=== PATIENT | female | born 1935 | race African-American/Black ===

== ENCOUNTER 2017-04-25 21:13 | Emergency (ER) | payer OTHER ==
[~2017-04-25] VITALS: Ht 170.2 cm; Wt 68.0 kg
[2017-04-25] MEDS ORDERED: LEXAPRO5 MG PO (21:19)
[2017-04-25] MEDS ORDERED: GLUCAGON HCL1 MG IM (21:19)
[2017-04-25] MEDS ORDERED: FLUTICASONE INH (21:20)
[2017-04-25] MEDS ORDERED: [UNRECOGNIZED DRUG - OTHER] INH (21:20)
[2017-04-25] MEDS ORDERED: NAMENDA XR28 MG PO (21:21)
[2017-04-25] MEDS ORDERED: IMDUR 60 MG TAB60 M1 PO (21:21)
[2017-04-25] MEDS ORDERED: JANUVIA100 MG PO (21:22)
[2017-04-25] MEDS ORDERED: BOOST237 M1 PO (21:22)
[2017-04-25] MEDS ORDERED: PRILOSEC 20 MG20 MG PO (21:23)
[2017-04-25] MEDS ORDERED: GLUMETZA1000 PO (21:23)
[2017-04-25] MEDS ORDERED: LOPRESSOR25 PO (21:23)
[2017-04-25] MEDS ORDERED: OMEGA-31000 M1 PO (21:24)
[2017-04-25] MEDS ORDERED: TYLENOL325 MG PO (21:24)
[2017-04-25] MEDS ORDERED: ELTA CREAM TOP (21:26)
== END 2017-04-25 23:24 ==
LOC: ER 21:13
DX: S09.90XA Unspecified injury of head, initial encounter (principal); S00.83XA Contusion of other part of head, initial encounter; M54.2 Cervicalgia; M25.512 Pain in left shoulder; M25.561 Pain in right knee; Z87.891 Personal history of nicotine dependence; W07.XXXA Fall from chair, initial encounter; Y93.89 Activity, other specified; Y92.89 Other specified places as the place of occurrence of the external cause; Y99.8 Other external cause status